=== PATIENT | female | born 2000 | race African-American/Black ===

== ENCOUNTER 2024-02-03 18:05 | Emergency (ER) | payer SELFPAY ==
[2024-02-03] MEDS: predniSONE 10 MG Tab PO ONE (20:02)
[2024-02-03] MEDS: Azithromycin 250 MG Tab PO ONE (20:02)
== END 2024-02-03 20:05 | disposition home or self-care (01) ==
LOC: MW.ED 18:05
DX: J32.9 Chronic sinusitis, unspecified (principal); Z75.8 Other problems related to medical facilities and other health care
CPT/HCPCS: 99283; A9270